=== PATIENT | male | born 1980 | race Caucasian/White ===

== ENCOUNTER 2020-11-14 19:43 | Emergency (ER) | payer OTHER, SELFPAY ==
--- NOTE | 2020-11-14 19:44 | ED.GENADUL_ITS ---
Discharge Plan Disposition Patient Disposition: HOME Condition: Good Discharge Details Clinical Impression: Chicken coop as the place of occurrence of the external cause, Pecked by chicken, Abrasion, Injection of surface of left eye Primary Care Provider: Eliza Saunders ED Provider: Lora De La Rosa Home Meds and New Rx's Prescriptions: No Action No Known Home Meds RF: 0 Discharge Instructions Instructions: Erythromycin (Into the eye), Abrasion (ED) Additional Instructions: The abrasion of your eye appears to be superficial. It does not go into your eye. The injection is likely from the trauma. However, I do not see any evidence of globe rupture. Your vision is intact. My largest concern at this time is for potential infection. Please use the erythromycin ointment, half an inch into your left eye 4 times daily for the next 4 days. If you develop fever/chills, increased eye pain, change in your vision, vomiting, headaches or other new/worsening symptoms please seek care urgently once again. Please follow-up with [facility]. Call tomorrow to schedule appointment, number listed below. Referrals: [facility] [Outside] Eliza Saunders [Primary Care Provider] - Medical Decision Making Patient is a pleasant 40-year-old male presenting today with chief complaint of being pecked by a chicken in the left eye. He reports that he was attempting to count his chickens when he struck his head in the coop in a chicken pecked him in the left eye. He states that his eyelid was closed at this time. States that he has had persistent low level pain since then. No visual changes. Patient does wear corrective lenses at baseline. Does not wear contact lenses. States he did have tearing of the eye. Secondary to the abrasion and the injection of his cornea he sought care for evaluation. He denies any foreign body sensation. On exam, patient is a 5 mm superficial laceration at the fold of the eyelid. No active bleeding. Not been cleansed, nursing staff will consult soon. He did penny the eyelid and this does not go through the lid. He has normal pupillary response, pupils are equal, round and reactive. Does have injection. No swelling. Extraocular movements are intact. Patient had 20/70 bilaterally but was not wearing his corrective lenses at the time of the testing as he did not bring his in with him. We will update patient's tetanus as this is out of date. Patient I discussed care of the eye. I do not see any evidence to suggest a globe rupture or deep involvement. Wound will be cleansed, will begin the patient on erythromycin ointment to prevent infection. Patient will be sent home with the ointment. Strict return precautions were discussed. Encouraged to follow-up with [facility]. He will call tomorrow to schedule appointment. All questions and concerns were addressed and he is agreement this plan. HPI General Mode of arrival: ambulatory . Date/Time Provider Initiated Documentation: 11/14/20 19:44 . Limitations to Documentation: no limitations . Information obtained by: patient and RN notes reviewed . History of Present Illness 40 year old M presents to the emergency department with the chief complaint of left eye trauma, described as mild, with intensity rated at 3. Quality is described as aching, Patient reports no radiation. Patient started experiencing this hour(s) and it has been constant. No relieving factors improve symptom(s), No exacerbating factors reported . Patient notes no other symptoms.. Patient did receive the following treatments prior to arrival, none Related Data Home Medications Medication Instructions Recorded Confirmed Unknown [No Known Home Meds] 11/14/20 11/14/20 Allergies Allergy/AdvReac Type Severity Reaction Status Date / Time Penicillins Allergy Unknown Unverified 02/17/14 09:14 Review of Systems Constitutional Constitutional: Reports as per HPI, Denies chills, Denies fatigue, Denies fever(s) and Denies headache(s) Eyes Eyes: Reports as per HPI ENT Ears, Nose, Mouth, and Throat: Denies headache(s) Cardiovascular Cardiovascular: Reports as per HPI, Denies chest pain and Denies lightheadedness Respiratory Respiratory: Denies cough Integumentary/Breasts Skin/Breast: Reports as per HPI, Reports skin pain and Reports wounds Neurologic Neurologic: Denies headache(s) and Denies radicular pain Endocrine Endocrine: Denies fatigue [facility] Social History Smoking/Tobacco Use Status: Never Smoking risk assessment performed?: Yes Alcohol Intake: current Alcohol Intake frequency: holidays/special occasions only Drug use: Occasionally Substance use type: marijuana Current gender identity: male Do you feel safe at home: Yes Do you feel safe in your relationship?: Yes Exam Const General: cooperative, healthy appearing, comfortable, no acute distress, well developed and well groomed Nutritional Appearance: average body habitus and well nourished Orientation: alert, awake and oriented x3 [facility] Head: normal to inspection, normocephalic and atraumatic Ears: hearing grossly normal bilaterally and external ears normal General nose exam: external nose normal and nares normal Face and sinus: normal facial exam and face symmetric Eyes Alignment and Position: alignment normal and position normal Periorbital: periorbital findings normal Eyelids: eyelid abnormality left upper eyelid (5mm superficial abrasion) Conjunctivae: conjunctival abnormality left conjunctival injection Pupils: PERRL and normal by confrontation EOM: EOM intact bilaterally Direct ophthalmoscopy: normal light reflex Eyes/upper lids images: 1. Resp Effort & Inspection: normal respiratory effort, able to speak in complete sentences and no respiratory distress Skin General skin exam: no rashes or lesions noted Neuro General: patient alert, patient awake and patient oriented x3 Cranial Nerves: CN's II-XI intact bilaterally Cognition: normal cognition Speech: speech normal Gait: normal gait Psych Appearance: grossly normal and well kempt Mental Status: mental status grossly normal Speech and Movement: speech and movement normal
[2020-11-14 19:46] VITALS: BP 134/79; PULSE 55; RESP 16; TEMP 36.7; O2SAT 100
[2020-11-14] MEDS: Erythromycin Ophth Oint 3.5 GM TUBE OS (20:24)
== END 2020-11-14 20:33 | disposition home or self-care (01) ==
PROVIDERS: Emergency Provider Physician Assistant; PCP Nurse Practitioner Family
DX: S01.112A Laceration without foreign body of left eyelid and periocular area, initial encounter (principal); W61.33XA Pecked by chicken, initial encounter; Y92.72 Chicken coop as the place of occurrence of the external cause; H57.89 Other specified disorders of eye and adnexa
CPT/HCPCS: 90471; 99284; 99283

== ENCOUNTER 2021-02-07 02:21 | Outpatient (CLI) | payer OTHER, SELFPAY ==
[2021-02-08 12:54] LABS: COVID-19 RT-PCR UVMMC Result Negative (Negative)
== END 2021-02-07 02:22 | disposition home or self-care (01) ==
PROVIDERS: PCP Nurse Practitioner Family; Visit Provider Nurse Practitioner Family
DX: Z20.822 Contact with and (suspected) exposure to COVID-19 (principal)
CPT/HCPCS: U0003

== ENCOUNTER 2022-03-21 09:19 | Outpatient (CLI) | payer OTHER, SELFPAY ==
[2022-03-21 13:40] LABS: Calculated LDL 68 mg/dL (<100); Cholesterol 130 mg/dL (<200); HDL Cholesterol 56 mg/dL (40-60); Triglyceride 31 mg/dL (<150)
[2022-03-21 17:21] LABS: Hemoglobin A1C 5.2 % (<5.7)
== END 2022-03-21 09:20 | disposition home or self-care (01) ==
LOC: LOS 09:19
PROVIDERS: PCP Nurse Practitioner Family; Referring Provider Nurse Practitioner Family; Visit Provider Nurse Practitioner Family
DX: E11.9 Type 2 diabetes mellitus without complications (principal); Z13.220 Encounter for screening for lipoid disorders; Z12.5 Encounter for screening for malignant neoplasm of prostate; Z80.42 Family history of malignant neoplasm of prostate
CPT/HCPCS: 36415; 80061; 83036; 84154

== ENCOUNTER 2023-05-31 18:44 | Outpatient (REF) | payer OTHER, SELFPAY ==
--- NOTE | 2023-05-31 15:40 | SKI_PTH ---
PATIENT: Joaquín Weiss LOC: [facility] U#:[id number] AGE/SX: 43/M ROOM: RE05/31/[address]: Noe Kapoor DO : 1980 BED: DIS: 05/31/2023 SPEC #: [id number] RECD: 05/31/23 18:50 STATUS: MARYURI REQ #: [id number] KEVIN: 05/31/23 15:[address]: Noe Kapoor DEPT: Surgical Specimen RECD BY: Jennifer Conner ENTERED: 05/31/23 18:50 SP TYPE: TEA JERONIMO DR: Reinaldo Kelly, PROFILE GRINDER TECHNICIAN Tissues: 1 - SKIN BIOPSY(SHAVE/PUNCH) Procedures: SKIN LEVEL 4 Comments: [id number]
== END 2023-05-31 18:45 | disposition home or self-care (01) ==
LOC: LBN 18:44
PROVIDERS: PCP Nurse Practitioner Family; Visit Provider Otolaryngology Otolaryngology/Facial Plastic Surgery
DX: D22.72 Melanocytic nevi of left lower limb, including hip (principal)
CPT/HCPCS: 88142; 88305

== ENCOUNTER 2023-12-06 13:03 | Outpatient (REF) | payer OTHER, SELFPAY ==
--- NOTE | 2023-12-06 10:10 | SKI_PTH ---
PATIENT: Joaquín Weiss LOC: [facility] U#:[id number] AGE/SX: 43/M ROOM: RE12/06/[address]: Noe Kapoor DO : 1980 BED: DIS: 12/06/2023 SPEC #: [id number] RECD: 12/06/23 16:39 STATUS: MARYURI REQ #: [id number] KEVIN: 12/06/23 10:[address]: Noe Kapoor DEPT: Surgical Specimen RECD BY: Jennifer Conner ENTERED: 12/06/23 16:39 SP TYPE: TEA JERONIMO DR: Reinaldo Kelly, GEOPHYSICAL ENGINEER Tissues: 1 - SKIN BIOPSY(SHAVE/PUNCH) 2 - SKIN BIOPSY(SHAVE/PUNCH) Procedures: SKIN LEVEL 4 Comments: [id number]
== END 2023-12-06 13:04 | disposition home or self-care (01) ==
LOC: LBN 13:03
PROVIDERS: PCP Nurse Practitioner Family; Referring Provider Otolaryngology Otolaryngology/Facial Plastic Surgery; Visit Provider Otolaryngology Otolaryngology/Facial Plastic Surgery
DX: D49.2 Neoplasm of unspecified behavior of bone, soft tissue, and skin (principal); C43.9 Malignant melanoma of skin, unspecified
CPT/HCPCS: 88305

== ENCOUNTER 2023-12-27 10:37 | Day surgery (SDC) | payer OTHER, SELFPAY ==
--- NOTE | 2023-12-26 18:36 | W.ANESPRE ---
General Info Date of Service Date Performed: 12/27/23 Height: 6 ft 4 in Weight: 81.647 kg Body Mass Index (BMI): 21.9 Surgical Procedure: Operation Date: 12/27/23 10:40 Proposed Procedure Side Surgeon p Wider Excision of Malignant Melanoma of Back John Paul Pulliam MD Meds Allergies and Home Medications Allergies Allergy/AdvReac Type Severity Reaction Status Date / Time Penicillins Allergy Unknown unknown Verified 12/27/23 10:56 Home Medication Medication Instructions Recorded Unknown [No Known Home Meds] 11/14/20 Current Visit Medications: Current Medications Generic Name Dose Route Start Last Admin Trade Name Freq PRN Reason Stop Dose Admin Acetaminophen 1,000 mg 12/27/23 06:00 Acetaminophen 500 Mg Tab PO 12/27/23 23:59 PREOP NATALYA Celecoxib 200 mg 12/27/23 06:00 Celecoxib 200 Mg Cap PO 12/27/23 23:59 PREOP NATALYA Gabapentin 600 mg 12/27/23 06:00 Gabapentin 300 Mg Cap PO 12/27/23 23:59 PREOP NATALYA Ringer's Solution 1,000 mls @ 80 mls/hr 12/27/23 06:00 IV 12/27/23 23:59 INFUSION [facility] IV Miscellaneous Supplies 1 each 12/27/23 06:00 Iv Access IV 12/27/23 23:59 DIRECTED NATALYA Sodium Chloride 0 ml 12/27/23 06:00 Normal Saline Flush 10 Ml Syr IV 12/27/23 23:59 PRN PRN Sodium Chloride 0 ml 12/27/23 06:00 Normal Saline 10 Ml Vial IJ 12/27/23 23:59 DIRECTED PRN Sterile Water 0 ml 12/27/23 06:00 Water,Injection,Sterile 10 Ml Vial IJ 12/27/23 23:59 DIRECTED PRN PFSH Active Problems Active Problems: Problem Status Onset Code Family history of melanoma Z80.8 Skin lesion L98.9 Benign mole D22.9 Medical History Medical History Family history of melanoma Rectal/anal hemorrhage Surgical History Surgical History (Updated 12/27/23 @ 11:15 by Beata Nye RN) History of colonoscopy Tobacco Smoking/Tobacco Use Status: Never Passive smoking exposure: No Second hand exposure: No Alcohol Alcohol Intake: current Alcohol intake frequency: a few times a week Alcohol type: beer Substance Use Substance use: Socially Substance use type: marijuana Vital Signs and Lab Results Vital Signs Most Recent Vital Signs in EMR: Temp Pulse Resp BP Pulse Ox 36.5 C 40 L 16 128/61 99 12/27/23 10:40 12/27/23 10:40 12/27/23 10:40 12/27/23 10:40 12/27/23 10:40 Lab Results Blood Type / Crossmatch: No Data to Display Complete Blood Count: No Data to Display Complete Metabolic Panel: No Data to Display Liver Function Panel: No Data to Display Coagulation Panel: No Data to Display Cardiac Panel: No Data to Display Arterial Blood Gas: No Data to Display Venous Blood Gas: No Data to Display Pancreas Panel: No Data to Display Thyroid Panel: No Data to Display Infectious Disease: No Data to Display Blood Cultures: No Data to Display Toxicology Panel: No Data to Display Anesthesia Assessment and Plan Anesthesia History Personal History: No History of Anesthesia Complications Family History: No Family History of Anesthesia Complications Exercise Tolerance Exercise Tolerance: Metabolic Equivalents>4 Cardiac & Pulmonary Exam Cardiac Exam: Normal S1/S2 Heart Sounds Pulmonary Exam: Clear Bilateral Breath Sounds Implantable Cardiac Device Does patient have a Pacemaker or an ICD?: No Airway Exam Known Difficult Airway: No Mallampati Class: 4 Mouth Opening: Narrow (< 3cm) Thyromental Distance: Less than 3 cm Neck Range of Motion: Full ROM Neck Circumference: Normal Teeth Condition: Normal Dentition ASA Classification ASA Score: ASA 2 Emergency Case?: No NPO Status NPO Status: NPO Clears >2 hours, Solids >8 hours Anesthesia Plan Resuscitation Status: Full Code Anesthesia Technique: General Anesthesia Airway Planned: Natural Airway Monitors Used: Standard Monitors Preoperative Comments:: 43 yo male for lesion excision. Sig PMHx: occ EtOH/cannabis. Previous Anes: - non-anes colo, midaz 5, Demerol 125, extremely sleepy after.
--- NOTE | 2023-12-26 18:53 | HPE_ITS ---
Assessment and Plan Assessment and plan (1) Cutaneous melanoma: Status: Acute Assessment and plan: Joaquín needs wide local excision of this pT1a melanoma. We will target 1 cm margins and attempt primary closure. I explained the risks and benefits of the procedure as well as the possible need for repeat exicsion or SLNB if needed. I think Joaquín has a great understanding of the plan today, he was able to provide consent, and we can proceed as planned. History of Present Illness History of Present Illness Chief Complaint: Melanoma Narrative: Joaquín is 43 years old. He has a pingmented lesion on his back. He underwent shave biospy that revealed a 0.6 mm melanoma. There was no ulceration. He needs wide local excision. PFSH All Active Problems Cutaneous melanoma (Acute) Skin lesion (Acute) Benign mole (Acute) Medical History Family history of melanoma Rectal/anal hemorrhage Surgical History (Updated 12/27/23 @ 11:15 by Beata Nye RN) History of colonoscopy Family History Mother No problems noted. Father Prostate cancer Sister No problems noted. Daughter No problems noted. Daughter No problems noted. Maternal Grandfather , 90's No problems noted. Paternal Grandfather , 80's Heart disease Maternal Grandmother , 70's Breast cancer Paternal Grandmother , 70's Depression Social History Smoking/Tobacco Use Status: Never Second Hand Exposure: No Smoking risk assessment performed?: Yes Alcohol Intake: current Alcohol Intake frequency: a few times a week Alcohol type: beer Drug use: Socially Substance use type: marijuana Details: Last marijuana use was yesterday 1700 Caregiver/Support person: No Household members: spouse and children Housing: house Communication Needs: None Do you need help understanding health information?: Rarely Pets and animals: Yes Pets and animals: cat(s) Sexually active: Yes Do you think of yourself as: straight/heterosexual Current gender identity: male What is your relationship status?: How often do you talk on the phone with friends or family?: once per week How often do you get together with friends or relatives?: once per week How often do you attend religion or islam services?: 1-3 times per year Do you belong to any clubs or organized social groups?: no Panel score (0-1 are the most socially isolated patients): 1 What type of physical activity do you participate in: walking, bicycling, other Details: skiing and running Duration: 60-90 minutes/day Frequency: daily Lynn/Mormonism: No preference Special lynn needs: No Seatbelt use: always Helmet use: Yes Helmet use: always Drive intox or ride w/intox driver's license reviewing officer: No Do you feel safe at home: Yes Do you feel safe in your relationship?: Yes Additional Social history: unable to assess privately Meds Allergies and Home Medications Allergies Allergy/AdvReac Type Severity Reaction Status Date / Time Penicillins Allergy Unknown unknown Verified 12/27/23 10:56 Home Medications Medication Instructions Recorded Confirmed Type Unknown [No Known Home Meds] 11/14/20 12/25/23 History Exam Const General: cooperative, healthy appearing and not in acute distress Neck Neck: normal visual inspection, no lymphadenopathy and supple Thyroid: thyroid normal Resp Effort & Inspection: normal respiratory effort Auscultation: clear to auscultation bilaterally Cardio Jugular venous pressure: no JVD Rate: regular rate Rhythm: regular rhythm Heart Sounds: S1 normal and S2 normal GI Inspection: normal to inspection Palpation: soft, no guarding, no hernias and nontender Percussion: normal to percussion Auscultation: normal bowel sounds Skin Other: There are 2 lesions on his back slightly to the left of midline, just around the level of the tip of the scapula. I do not appreciate any cervical or axillary lymphadenopathy. Neuro General: patient alert, patient awake and patient oriented x3 Psych Appearance: grossly normal
--- NOTE | 2023-12-26 18:58 | W.PM.DSUDISC ---
Date of service: 12/27/23 Time of Service: 13:11 Discharge Plan Disposition Patient Disposition: Home Condition: Good Discharge Details Reason For Visit: Wide local excision of cutaneous melanoma Attending Provider: John Paul Pulliam Primary Care Provider: Reinaldo Kelly Home Meds and New Rx's Prescriptions: New tramadol 50 mg tablet 50 mg PO Q8H PRNQty: 12 0RF Rx Instructions: Take 1 tablet by mouth up to every 8 hours if needed for pain. Do not drive while using this medication. Discharge Instructions Instructions: Melanoma (GEN) Additional Instructions: Joaquín, we were able to excise the melanoma today just as planned. I did actually end up using a straight incision, which allowed me to remove that other lesion that Aracelis had some concerns about. The length of it allowed the middle to come together with relatively little tension, and I think it will be just fine. It also preserves any options that we may need in the future if the wound does give you any trouble at all. I am very optimistic again to do great. Like we talked about beforehand, you have a vacuum type incision dressing. As long as the light blinks green, the dressing is totally fine, you can shower with it. Technically the battery is usually good for about 7 days. This dressing is really for your convenience more than anything, so if you find it difficult to manage, please let me know, we can remove it just put something basic on. Similarly, if you notice that the light starts blinking orange, let me know and I can try to help you troubleshoot it. We used a fair amount of local anesthetic to try to help provide as much comfort as possible. As I mentioned earlier, Tylenol and ibuprofen will also be helpful, and I did put a prescription in for some tramadol that you can use as needed. 1. Use Ice packs on the incision as needed for pain 2. Use over the counter tylenol and ibuprofen for pain. I recommend alternating them every 6 hours for 2 days, then limiting the use to as needed. Use tramadol as needed for more severe pain. 3. Leave bandage in place for 24 hours, then remove. 4. Shower with warm soapy water. Pat dry. Use a bandaid if needed to protect your clothing. 5. No soaking or tub baths until I see you in the office. 6. No heavy lifting until I see you in the office. 7.Call the office (or go directly to the emergency room after hours) if you notice any of the following: Develop chills (warm to touch), or if you have a thermometer and your temperature is above 101 Difficulty breathing or difficultly swallowing Persistent vomiting Any bleeding ? exceeding one tablespoon 8. Call your physician if the site where your intravenous was started becomes red, swollen, painful, and warm to touch. Activity:: Activity as Tolerated Remove Dressings/Wound Care:: Do Not Remove Shower/Bathe:: 24 hours Diet:: As Tolerated Discharge Orders Discharge Orders: Discharge Order (Routine); Ordered 12/26/23 Ordered By: John Paul Pulliam DS: Diagnosis Discharge Diagnosis (1) Cutaneous melanoma: Status: Acute Asessment and Plan: Status post wide local excision. Outpatient follow-up in the office.
--- NOTE | 2023-12-26 19:02 | ROE_ITS ---
Date of service: 12/27/23 Time of Service: 13:16 Operative Note Operative Note DATE OF PROCEDURE: 12/27/23 PRE-OP DIAGNOSIS: Cutaneous melanoma Same PROCEDURE: Wide excision of cutaneous melanoma. SURGEON: John Paul Pulliam ANESTHESIA TYPE: Local By Surgeon and MAC Refer to Anesthesia Record ESTIMATED BLOOD LOSS: 25 PATHOLOGY: other (Melanoma from back, 1 suture bowers head, 2 sutures dorcas patient's right side) COMPLICATIONS: None Patient was transported to: PACU Patient's condition: stable Indications: Joaquín is a 43-year-old male with a pigmented skin lesion on his back that is biopsy-proven melanoma. At 0.6 mm in depth, he requires wide local excision. Procedure Description: Joaquín was assisted to the left lateral decubitus position, and padded appropriately. He was comfortable. Next, anesthetic care was administered. Next, I prepped and draped the back in usual fashion. I established a generous field block using local anesthetic. Next I marked out the skin in order to ensure appropriate 1 cm margins in all directions. In light of the orientation of the tension lines, the wounds, and the planned excision, after considering multiple options, follow longitudinal incision with attempted primary closure would be in his best interest. Therefore, mated skin incision approximately 14 cm long by approximately 4 cm wide. Sharp dissection was used to enter the deep subcutaneous fat tissues. Specimen was then completely dissected off of the underlying subcutaneous fat taking great care to ensure adequate margins in all directions. Once the specimen was passed off, it was labeled with 1 suture towards the patient's head, 2 stitches towards the patient's right side. I then turned my attention back to the wound. Hemostasis was used to control small subcutaneous bleeding. The wound was irrigated. Slight skin flaps were raised on each side of the incision, and 2-0 Vicryl stitches were used to approximate the deep levels of the skin and subcutaneous tissues. The wound was irrigated once again, and the skin was brought together with 3-0 interrupted subcutaneous sutures. Skin stapler was used for the final skin closure. Next, I placed a jihan negative pressure wound therapy device according to the afloat cryptologic manager's instructions. Patient was then awoken from his anesthesia, transferred to the recovery unit.
[2023-12-27 10:40] VITALS: BP 128/61; PULSE 40; RESP 16; TEMP 36.5; O2SAT 99
[2023-12-27] MEDS: Celecoxib 200 MG CAP PO (10:59)
[2023-12-27] MEDS: Acetaminophen 500 MG TAB 1000 MG PO (10:59)
[2023-12-27] MEDS: Gabapentin 300 MG CAP 600 MG PO (10:59)
[2023-12-27] MEDS: Lactated Ringers 1,000 ML 80 ML IV (11:20)
[2023-12-27 11:42] VITALS: BMI 21.9
--- NOTE | 2023-12-27 12:42 | SOFT_PTH ---
PATIENT: Joaquín Weiss LOC: [facility] U#:[id number] AGE/SX: 43/M ROOM: RE12/27/[address]: John Paul Pulliam MD : 1980 BED: DIS: 12/27/2023 SPEC #: [id number] RECD: 12/27/23 18:02 STATUS: MARYURI RE #: [id number] KEVIN: 12/27/23 12:[address]: John Paul Pulliam DEPT: Surgical Specimen RECD BY: Jennifer Conner ENTERED: 12/27/23 18:04 SP TYPE: SOFT OTHR DR: Reinaldo Kelly, BAYLEE Tissues: 1 - SOFT TISSUE MISC (INC. LIPOMA) Procedures: SKIN LEVEL 4 Comments: [id number]
[2023-12-27 13:10] VITALS: BP 104/51; PULSE 56; RESP 16; TEMP 36.2; O2SAT 99
--- NOTE | 2023-12-27 13:27 | W.ANESPOSTOP ---
Postoperative Evaluation Date, Time and Location Date Performed: 12/27/23 Time Performed: 13:20 Patient Location: Day Surgery Unit Vital Signs Most Recent Imported Vital Signs: Most Recent Vital Signs Temp Pulse Resp BP Pulse Ox 36.2 C L 56 L 16 104/51 L 99 12/27/23 13:10 12/27/23 13:10 12/27/23 13:10 12/27/23 13:10 12/27/23 13:10 Pain Score Most Recent Pain Score: Most Recent Pain Score Pain Level 0 12/27/23 13:10 Assessment Mental Status: Awake (Alert & Oriented to Patient Baseline) Airway and Respiratory Function: Patent airway with normal (patient baseline) respiratory exam Cardiovascular Function: Hemodynamically Stable Hydration Status: Adequately Hydrated Nausea & Vomiting: No Nausea or Vomiting Pain: Pain is tolerable per patient Peripheral Nerve Block: Patient did not receive a nerve block
[2023-12-27 13:45] VITALS: BP 104/52; PULSE 40; RESP 16; TEMP 36.1; O2SAT 99
== END 2023-12-27 14:27 | disposition home or self-care (01) ==
LOC: SUR 10:37
PROVIDERS: PCP Nurse Practitioner Family; Visit Provider Surgery
PROC: (CPT 11606; principal; 2023-12-27 10:30)
DX: C43.59 Malignant melanoma of other part of trunk (principal)
CPT/HCPCS: 11606; 12035; 88304; 88305; J1100; J1885; J2001; J2250; J2405; J2704

== ENCOUNTER 2024-12-07 07:42 | Day surgery (SDC) | payer OTHER, SELFPAY ==
--- NOTE | 2024-12-06 06:46 | W.PM.DSUDISC ---
Date of service: 12/07/24 Discharge Plan Disposition Patient Disposition: Home Condition: Good Discharge Details Reason For Visit: screening colonoscopy Attending Provider: John Paul Pulliam Primary Care Provider: Reinaldo Kelly Home Meds and New Rx's Prescriptions: No Action No Known Home Meds Discharge Instructions Instructions: Colon polyps Additional Instructions: Joaquín, it was great seeing you today, I hope you feel well after the procedure. Everything went very smoothly. Did have 1 single polyp today, which came out without any issues. This will be sent off to the pathologist to review. Colon polyps, and a number of different varieties, and we use the characterization from the pathologist to help guide the timing of future colonoscopies. Those results take about a week or 2 from my office to get back, but once I have that information I will be in touch. If you need anything, or have any questions at all, just give me a ring. 1. If tolerated, consume a soft, low fiber diet for 1-2 days. 2. Do not drive, drink alcohol, operate machinery, make critical decisions, or do activities that require coordination or balance for 24 hours. 3. Because air was put into your colon during the procedure, expelling air from your rectum (passing gas or farting) is normal. 4. You may not have a bowel movement for 1-3 days because of the colonoscopy prep. This is normal. 5. Go directly to the emergency room if you notice any of the following: Develop chills (warm to touch), or if you have a thermometer and your temperature is above 101 Difficulty breathing or difficultly swallowing Persistent vomiting Severe abdominal pain, other than gas cramps Severe chest pain Black, tarry stools Any bleeding ? exceeding one tablespoon 6. Call your physician if the site where your intravenous was started becomes red, swollen, painful, and warm to touch. 7. Your physician has reviewed your pre-procedure medications. Please continue to take those medications as previously ordered. You will be given specific information/education regarding any changes to your medications before leaving. Stand Alone Forms: Anesthesia Discharge Kevin Parker (YARED) Activity:: Activity as Tolerated Diet:: As Tolerated DS: Diagnosis Discharge Diagnosis (1) Encounter for screening colonoscopy: Status: Acute Asessment and Plan: Follow-up on polypectomy results
--- NOTE | 2024-12-06 06:48 | COLE_ITS ---
Date of service: 12/07/24 Time of Service: 09:48 Colonoscopy Report Date of procedure: 12/07/24 Pre-op diagnosis general: screening colonoscopy Post-op diagnosis procedure note: other (Cecal polyp) Procedure: colonoscopy Surgeon: John Paul Pulliam Anesthesia Type: General:No Airway Estimated blood loss (mL): 5 Pathology: other (0.25 cm flat cecal polyp) Complications: None Disposition: same day Indications: Joaquín is a 44 year old man who needs a screening colonoscopy Prep: Miralax/Dulcolax Procedure Start Time: 09:10 Procedure End Time: 09:33 Retraction Time: 11 Findings: 0.25 cm flat cecal polyp Procedure Description: After the induction of m anesthesia, and with Joaquín in left lateral decubitus position, I began by performing an external anorectal exam.? Perineum and skin were normal, as was the anal verge.? Next, I performed a digital rectal exam.? I did not appreciate any abnormal findings.? Next, I advanced a colonoscope into the rectal vault.? I performed retroflexion.? This appeared normal.? Using insufflation, I then advanced the colonoscope beyond the rectal folds and into the sigmoid colon before advancing towards the cecum.? The quality of the prep was excellent.? The scope was noted to be in the cecum by identification of the ileocecal valve and appendiceal orifice.? Just a few millimeters away from the appendiceal orifice was a 0.25 cm flat polyp in the cecum. This was removed with cold forceps with minimal bleeding. I then began withdrawing the colonoscope using repeated irrigation as necessary for full evaluation of the colonic mucosa. ?Once the scope was withdrawn to the level of the rectum, great care was taken to examine portions of the rectal folds.? Finally, the scope was withdrawn and the patient was brought to the same-day surgery recovery unit as the anesthetic wore off. ?The findings and instructions were shared with the patient prior to discharge. [place] Bowel Prep [place] Bowel Prep Right Colon: 2 Left Colon: 3 Transverse Colon: 3 Total Score: 8
--- NOTE | 2024-12-06 18:15 | W.ANESPRE ---
General Info Date of Service Date Performed: 12/07/24 Height: 6 ft 4 in Weight: 82.1 kg Body Mass Index (BMI): 22.0 Surgical Procedure: Operation Date: 12/07/24 09:05 Proposed Procedure Side Surgeon p Colonoscopy John Paul Pulliam MD Meds Allergies and Home Medications Allergies Allergy/AdvReac Type Severity Reaction Status Date / Time Penicillins Allergy Unknown unknown Verified 12/07/24 08:02 Home Medication ?Medication ?Instructions ?Recorded Unknown [No Known Home Meds] 07/01/24 Current Visit Medications: Current Medications Generic Name Dose Route Start Last Admin Trade Name Freq PRN Reason Stop Dose Admin Ringer's Solution 1,000 mls @ 80 mls/hr 12/07/24 06:00 IV 12/07/24 23:59 INFUSION NATALYA IV Miscellaneous Supplies 1 each 12/07/24 06:00 Iv Access IV 12/07/24 23:59 DIRECTED NATALYA Ondansetron HCl 4 mg 12/06/24 06:50 Ondansetron 4 Mg/2 Ml Vial IVP 01/05/25 06:49 Q4H PRN PRN Nausea / Vomiting Sodium Chloride 0 ml 12/07/24 06:00 Normal Saline Flush 10 Ml Syr IV 12/07/24 23:59 PRN PRN Sodium Chloride 0 ml 12/07/24 06:00 Normal Saline 10 Ml Vial IJ 12/07/24 23:59 DIRECTED PRN Sterile Water 0 ml 12/07/24 06:00 Water,Injection,Sterile 10 Ml Vial IJ 12/07/24 23:59 DIRECTED PRN PFSH Active Problems Active Problems: Problem Status Onset Code Encounter for screening colonoscopy Acute Z12.11 Low back pain Acute M54.50 History of melanoma Acute Z85.820 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 Skin lesion Acute L98.9 Benign mole Acute D22.9 Medical History Medical History Family history of melanoma Rectal/anal hemorrhage Surgical History Surgical History History of excision of mass (~12/2023) Wider exe malignant melana back History of colonoscopy Tobacco Smoking/Tobacco Use Status: Never Passive smoking exposure: No Second hand exposure: No Alcohol Alcohol Intake: current Alcohol intake frequency: a few times a week Alcohol type: beer Substance Use Substance use: Socially Substance use type: marijuana Vital Signs and Lab Results Vital Signs Most Recent Vital Signs in EMR: Temp Pulse Resp BP Pulse Ox 36.3 C L 45 L 16 110/65 100 12/07/24 07:45 12/07/24 07:45 12/07/24 07:45 12/07/24 07:45 12/07/24 07:45 Lab Results Blood Type / Crossmatch: No Data to Display Complete Blood Count: No Data to Display Complete Metabolic Panel: No Data to Display Liver Function Panel: No Data to Display Coagulation Panel: No Data to Display Cardiac Panel: No Data to Display Arterial Blood Gas: No Data to Display Venous Blood Gas: No Data to Display Pancreas Panel: No Data to Display Thyroid Panel: No Data to Display Infectious Disease: No Data to Display Blood Cultures: No Data to Display Toxicology Panel: No Data to Display Anesthesia Assessment and Plan Anesthesia History Personal History: No History of Anesthesia Complications Family History: No Family History of Anesthesia Complications Exercise Tolerance Exercise Tolerance: Metabolic Equivalents>4 Cardiac & Pulmonary Exam Cardiac Exam: Normal S1/S2 Heart Sounds Pulmonary Exam: Clear Bilateral Breath Sounds Implantable Cardiac Device Does patient have a Pacemaker or an ICD?: No Airway Exam Known Difficult Airway: No Mallampati Class: 4 Mouth Opening: Narrow (< 3cm) Thyromental Distance: Less than 3 cm Neck Range of Motion: Full ROM Neck Circumference: Normal Teeth Condition: Normal Dentition ASA Classification ASA Score: ASA 2 Emergency Case?: No NPO Status NPO Status: NPO Clears >2 hours, Solids >8 hours Anesthesia Plan Resuscitation Status: Full Code Anesthesia Technique: General Anesthesia Airway Planned: Natural Airway Monitors Used: Standard Monitors Preoperative Comments:: 43 yo male for lesion excision. Sig PMHx: occ EtOH/cannabis. Previous Anes: - lesion removal, prop, dex, ketamine, natural airway, no issues. - non-anes colo, midaz 5, Demerol 125, extremely sleepy after.
[2024-12-07 07:45] VITALS: BP 110/65; PULSE 45; RESP 16; TEMP 36.3; O2SAT 100
[2024-12-07] MEDS: Lactated Ringers 1,000 ML 80 ML IV (08:18)
[2024-12-07 08:42] VITALS: BMI 22.0
--- NOTE | 2024-12-07 09:24 | BOWEL_PTH ---
PATIENT: Joaquín Weiss LOC: [facility] U#:[id number] AGE/SX: 44/M ROOM: RE12/07/[address]: John Paul Pulliam MD : 1980 BED: DIS: 12/07/2024 SPEC #: [id number] RECD: 12/07/24 12:31 STATUS: MARYURI REQ #: [id number] KEVIN: 12/07/24 09:[address]: John Paul Pulliam DEPT: Surgical Specimen RECD BY: Jennifer Conner ENTERED: 12/07/24 12:32 SP TYPE: Bowel OTHR DR: Reinaldo Kelly, BAYLEE Tissues: 1 - BIOPSY BOWEL Procedures: GROSS AND MICRO LEVEL 4 Comments: [id number]
[2024-12-07 09:35] VITALS: BP 106/64; PULSE 54; RESP 16; TEMP 36.2; O2SAT 92
--- NOTE | 2024-12-07 09:45 | W.ANESPOSTOP ---
Postoperative Evaluation Date, Time and Location Date Performed: 12/07/24 Time Performed: 09:45 Patient Location: Day Surgery Unit Vital Signs Most Recent Imported Vital Signs: Most Recent Vital Signs Temp Pulse Resp BP Pulse Ox 36.2 C L 54 L 16 106/64 92 12/07/24 09:35 12/07/24 09:35 12/07/24 09:35 12/07/24 09:35 12/07/24 09:35 Pain Score Most Recent Pain Score: Most Recent Pain Score Pain Level 0 12/07/24 09:35 Assessment Mental Status: Awake (Alert & Oriented to Patient Baseline) Airway and Respiratory Function: Patent airway with normal (patient baseline) respiratory exam Cardiovascular Function: Hemodynamically Stable Hydration Status: Adequately Hydrated Nausea & Vomiting: No Nausea or Vomiting Pain: Pt. Denies Any Pain Peripheral Nerve Block: Patient did not receive a nerve block
[2024-12-07 10:15] VITALS: BP 107/65; PULSE 40; RESP 17; TEMP 36.2; O2SAT 99
== END 2024-12-07 10:20 | disposition home or self-care (01) ==
LOC: SUR 07:43
PROVIDERS: PCP Nurse Practitioner Family; Visit Provider Surgery
PROC: 0DJD8ZZ Inspection of Lower Intestinal Tract, Via Natural or Artificial Opening Endoscopic (ICD-10-PCS; CPT 45378; principal; 2024-12-07 09:00)
DX: Z12.11 Encounter for screening for malignant neoplasm of colon (principal); D12.0 Benign neoplasm of cecum
CPT/HCPCS: 45380; 88305; J2704

== ENCOUNTER 2025-01-25 08:43 | Outpatient (CLI) | payer OTHER, SELFPAY ==
[2025-01-25 09:33] LABS: Hemoglobin A1C 5.2 % (<5.7)
[2025-01-25 09:55] LABS: Calculated LDL 50 mg/dL (<100); Cholesterol 108 mg/dL (<200); HDL Cholesterol 46 mg/dL (>or=40); Triglyceride 60 mg/dL (<150)
== END 2025-01-25 08:44 | disposition home or self-care (01) ==
LOC: LBO 08:44
PROVIDERS: PCP Nurse Practitioner Family; Visit Provider Nurse Practitioner Family
DX: Z13.1 Encounter for screening for diabetes mellitus (principal); Z13.220 Encounter for screening for lipoid disorders
CPT/HCPCS: 36415; 80061; 83036